=== PATIENT | female | born 1990 | race Caucasian/White ===

== ENCOUNTER 2020-07-21 12:06 | Emergency (ER) | payer SELFPAY ==
[~2020-07-21] VITALS: Ht 154.9 cm; Wt 68.0 kg
[2020-07-21 13:08] LABS: HEMATOCRIT 46.2 % (37.0-47.0); HEMOGLOBIN 15.3 g/dl (12.0-16.0); IMMATURE GRANULOCYTES 0.2 % (0.0-5.0); MEAN CELL VOLUME 99.4 fL CALC (80.0-100.0); MEAN CORPUSCULAR HGB 32.9 pG CALC (26.0-32.0); MEAN CORPUSCULAR HGB CONC 33.1 g/dL CAL (32.0-36.0); NEUT# 4.24 thou/uL (2.00-7.15); RED BLOOD COUNT 4.65 mill/uL (4.20-5.60); RED CELL DISTRI WIDTH 12.2 % (11.5-15.5)
[2020-07-21 13:19] LABS: ALBUMIN 5.1 g/dL (3.2-5.0); ALKALINE PHOSPHATASE 76 u/l (38-126); ANION GAP 15 (6-22 (CALC)); BILIRUBIN, TOTAL 1.1 mg/dL (0.0-1.4); BUN 8 mg/dL (7-17); BUN/CREATININE RATIO 10 (12-20 (CALC)); CARBON DIOXIDE 24 mmol/l (22-30); CHLORIDE 100 mmol/l (95-108); CREATININE 0.8 mg/dL (0.5-1.0); ETHYL ALCOHOL 0 mg/dl (0-30); GFR > 60 ML/MIN (>=60 (CALC)); GFR FOR AFR.AMER. > 60 ML/MIN (>=60 (CALC)); LIPASE 165 u/l (23-300); MAGNESIUM 1.8 mg/dL (1.6-2.3); SGOT/AST 62 u/l (14-36); SODIUM 135 mmol/l (137-146); TOTAL PROTEIN 8.2 g/dL (6.3-8.2)
[2020-07-21 13:24] LABS: D-DIMER 0.33 mg/L (0.19-0.60)
[2020-07-21 13:28] LABS: ACT PARTIAL THROMBO TIME 21.7 SECONDS (20.0-32.5); PROTHROMBIN TIME 9.9 SECONDS (9.0-12.5)
[2020-07-21 13:49] LABS: TSH, 3RD GENERATION 2.31 uIU/mL (0.47 - 4.68)
[2020-07-21] MEDS ORDERED: ZOFRAN4 MG/TAB PO (14:30)
[2020-07-21 14:46] VITALS: BP 110/67
== END 2020-07-21 15:00 | disposition home or self-care (01) | DRG 392 ==
LOC: ED 12:06
DX: R11.0 Nausea (principal); R42 Dizziness and giddiness; F17.210 Nicotine dependence, cigarettes, uncomplicated; Z20.822 Contact with and (suspected) exposure to COVID-19